=== PATIENT | female | born 1945 | race Caucasian/White ===

== ENCOUNTER 2016-11-28 21:04 | Emergency (ER) | payer MEDICARE ==
[~2016-11-28] VITALS: Ht 157.5 cm; Wt 91.2 kg
[2016-11-28] MEDS ORDERED: AMLODIPINE (21:37)
[2016-11-28] MEDS ORDERED: LEVOTH (21:37)
[2016-11-28] MEDS ORDERED: COZ (21:38)
[2016-11-28] MEDS ORDERED: [UNRECOGNIZED DRUG - CODE] (21:38)
[2016-11-28] MEDS ORDERED: FAMOTIDINE 20 MG/2 ML ONE (21:58)
[2016-11-28] MEDS ORDERED: FAMOTIDINE 20 MG/2 ML IVP ONE (22:00)
[2016-11-28] MEDS ORDERED: SODIUM CHLORIDE 0.9% 1,000ML IVBOLUS ONE (22:00)
[2016-11-28 22:18] LABS: ASPARTATE AMINO TRANSFERASE 24 U/L (15-37); BLOOD UREA NITROGEN 25 mg/dL (7-18)
[2016-11-28 22:25] LABS: IS PT STATUS REG ER OR PRE ER? YES
[2016-11-28 23:55] VITALS: BP 134/85
== END 2016-11-29 00:14 | disposition home or self-care (01) ==
LOC: ED 23:59
DX: E86.0 Dehydration (principal); E78.00 Pure hypercholesterolemia, unspecified; E03.9 Hypothyroidism, unspecified; M19.90 Unspecified osteoarthritis, unspecified site; I10 Essential (primary) hypertension
CPT/HCPCS: 36415; 71010; 80053; 83690; 83880; 84484; 85025; 93005; 93970; 96361; 96374; 99285; J7030; S0028